=== PATIENT | female | born 1960 | race Caucasian/White ===

== ENCOUNTER 2020-06-09 09:59 | Outpatient (REF) | payer OTHER, SELFPAY ==
--- NOTE | ~2020-06-09 | MM_ITS ---
EXAMINATION: MM SCREENING DIGITAL BREAST TOMOSYNTHESIS, BILATERAL CLINICAL INFORMATION: Screening. Asymptomatic. Family history breast cancer, sister, age 60. The lifetime risk of breast cancer based on the Tyrer-Cuzick Model is 16%. COMPARISON: Mammography: 10/31/2018, 08/29/2017, 07/11/2016 TECHNIQUE: Digital breast tomosynthesis is performed in both the craniocaudal and mediolateral oblique views along with computer-aided detection (CAD). Synthesized 2D images are generated from the tomosynthesis. FINDINGS: The breasts are almost entirely fatty (ACR BI-RADS breast composition Category a). There are no significant masses, abnormal calcifications, or other abnormalities. MM/MM tomosynthesis screening BI IMPRESSION: No mammographic evidence of malignancy. ASSESSMENT: BI-RADS 1: Negative RECOMMENDATION: Routine annual mammography screening. This patient's information was entered into a reminder system with a target due date for their next mammogram.
== END 2020-06-09 10:00 | disposition home or self-care (01) ==
LOC: HO.MAMMO 09:59
PROVIDERS: Visit Provider Internal Medicine
DX: Z12.31 Encounter for screening mammogram for malignant neoplasm of breast (principal)
CPT/HCPCS: 77063; 77067

== ENCOUNTER → 2021-08-25 10:57 | Outpatient (BNVA) | payer OTHER, SELFPAY | PROVIDERS: PCP Internal Medicine; Referring Provider Internal Medicine; Visit Provider Physician Assistant | DX: Z13.89 Encounter for screening for other disorder (principal) ==

== ENCOUNTER → 2025-03-21 13:00 | Outpatient (BNV) | payer OTHER, SELFPAY | PROVIDERS: PCP Internal Medicine; Visit Provider Internal Medicine | DX: Z12.31 Encounter for screening mammogram for malignant neoplasm of breast (principal) | CPT/HCPCS: 77063; 77067 ==

== ENCOUNTER 2025-03-21 14:16 | Outpatient (REF) | payer OTHER, SELFPAY ==
--- OUTSIDE RECORDS SUMMARY | 2025-03-19 11:30 | XMS_ITS | Encounter Summary ---
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 Name Role Phone Cruz Phillip MD Primary Care Provider [phone] Reason for Referral * Consultation (Urgent) - Pending Review Specialty Diagnoses / Procedures Referred By Prasad lynn Referred To Contact Otolaryngology Diagnoses Dysphagia, unspecified type Hoarseness of voice Nuvia Barros MD [address] [place] [address] Rd [address] [place] [address] Phone: tel: fax: Referral ID Status Reason Start Date Expiration Date Visits Requested Visits Authorized [id number] Pending Review Specialty Services Required 5 03/19/2026 1 1 * Imaging (Routine) - Pending Review Specialty Diagnoses / Procedures Referred By Prasad lynn Referred To Contact Radiology Diagnoses Lower abdominal pain Procedures CT Abdomen Pelvis w Contrast Nuvia Barros MD [address] [place] [address] Phone: tel: fax: [address] Phone: tel: Referral ID Status Reason Start Date Expiration Date V isits Requested Visits Authorized [id number] Pending Review 03/19/2025 03/19/2026 1 1 Reason for Visit * Reason Comments Post-op Encounter Details Date Type Department Care Team (Latest Contact Info) Description 03/19/2025 11:30 AM EST Office Visit Urogynecology - [facility] [address] [place], [place] [phone] Nuvia Barros MD [address] [facility] [address] [place] [address] Postoperative state (Primary Dx); Lower abdominal pain; Dysphagia, unspecified type; Hoarseness of voice Social History Tobacco Use Types Packs/Day Years Used Date Smoking Tobacco: Never Smokeless Tobacco: Never Alcohol Use Standard Drinks/Week Comments No 0 (1 standard drink = 0.6 oz pur e alcohol) Interpersonal Safety Answer Date Record ed Physical Abuse Unrecognized value 01/13/2025 Verbal Abuse Unrecognized value 01/13/2025 Comments No Sex and Gender Information Value Date Recorded Sex Assigned at Not on file Legal Sex Female 8:26 AM EST Gender Identity Not on file Sexual Orientation Not on file documented as of this encounter Last Filed Vital Signs Vital Sign Reading Time Taken Comments Blood Pressure 130/86 03/19/2025 11:35 AM EST Pulse 74 03/19/2025 11:35 AM EST Temperature - - Respiratory Rate - - Oxygen Saturation - - Inhaled Oxygen Concentration - - Weight - - Height - - Body Mass Index - - documented in this encounter Progress Notes * Nuvia Barros MD - 03/19/2025 11:30 AM EST UROGYNECOLOGY POSTOPERATIVE EVALUATION VISIT LOCATION: [facility] DATE: 03/19/2025 Marva Buchanan is a 64 y.o. who presents for a postoperative visit. Surgeon: Dr. Barros Surgery Date: 01/13/25 Procedures: Robotic-assisted laparoscopic supracervical hysterectomy with bilateral salpingectomy with extensive adhesiolysis (CPT 62172). Robotic-assisted laparoscopic mesh sacrocolpoopexy (CPT 70860). Placement of retropubic mesh mid-urethral sling and cystourethroscopy (CPT 02789). Posterior colporrhaphy with perineorrhaphy (CPT 91057). She was discharged on POD#1 without a catheter. She presented with delayed postoperative urinary retention. On 01/31/25, she underwent: Release and partial removal of mesh mid-urethral sling and cystourethroscopy (CPT 42826, modifier 78). Anterior colporrhaphy (CPT 05252, modifier 78). Repair of urethral injury. She was discharged home with an indwelling Hooker catheter for 12 days. She then passed an active voiding trial. She reports mild cramping in her pelvis today. It occurs below her belly button, when she has a bowel movement or when she is coughing. She also notes persistent hoarseness of her throat, as well as some difficulty with swallowing, since her surgery. She believes it started after her second procedure in January. 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 General - Awake, alert, no acute distress Head - Normocephalic, Atraumatic. Pulmonary - Normal respiratory effort, Speaking in full sentences comfortably. Abdominal - Soft, Nondistended, Nontender. No rebound or guarding. and Surgical scar(s) noted (5 laparoscopic port sites are well approximated and c/d/I. No evidence of hernia) No tenderness when palpating over the incision. Pelvic (a speculum was used for portions of the below exam): External Genitalia: Normal external genitalia, No erythema, No discharge. Suprapubic incisions are well approximated and fully healed. There are no ecchymoses. Urethral Meatus: Normal urethral meatus Urethra: Normal in appearance. Vagina: Atrophic epithelium Vaginal incisions well approximated and fully healed. No vaginal mesh or suture exposure. Cervix: Present and No abnormalities visualized A/P: Marva Buchanan is a 64 y.o. s/p surgery on 01/13/25 complicated by postoperative urinary retention Procedures: 1. Robotic-assisted laparoscopic supracervical hysterectomy with bilateral salpingectomy with extensive adhesiolysis (CPT 74249). 2. Robotic-assisted laparoscopic mesh sacrocolpoopexy (CPT 66271). 3. Placement of retropubic mesh mid-urethral sling and cystourethroscopy (CPT 57867). 4. Posterior colporrhaphy with perineorrhaphy (CPT 04841). Procedures 01/31/2025: 1. Release and partial removal of mesh mid-urethral sling and cystourethroscopy (CPT 81802, modifier 78). 2. Anterior colporrhaphy (CPT 66272, modifier 78). 3. Repair of urethral injury. She presents today 6 weeks following her sling revision procedure. She has an appropriate postoperative exam. Infraumbilical pain - no identifiable ventral hernia on exam, but Valsalva appears to worsen the pain. Will obtain CT abd/pelvis to rule out hernia. Referral to ENT for hoarseness and dysphagia. She had a ETT for her first surgery but LMA for her second, so unclear as to the cause of persistent hoarseness. Treatment plan: Return to the office as needed Will follow up CT abd/pelvis results by phone My final recommendations will be communicated back to the requesting physician by way of shared Medical record or letter via US mail. Nuvia Barros MD Division of Urogynecology 03/19/2025 documented in this encounter Plan of Treatment Upcoming Encounters Date Type Department Care Team (Late st Contact Info) Description 05/07/2025 11:30 AM EST Office Visit Orthopedics - [facility] [address] [place] [phone] Jayson Sharpe PA [address] [place] [phone] 05/20/2025 11:00 AM EST Office Visit Gastroenterology - [address] [phone] Dottie Weaver NP [address] [address] 08/06/2025 11:00 AM EDT Office Visit Bariatric Surgery - [address] [place] [address] Roberta Brown PA [address] [place] [phone] Scheduled Orders Name Type Priority Associated Diagnoses Orde r Schedule CT Abdomen Pelvis w Contrast Imaging Routine Lower abdominal pain Expected: 03/26/2025, Expires: 03/19/2026 Scheduled Referrals Name Type Priority Associated Diagnoses Order Schedule Ambulatory referral to ENT Outpatient Referral Routine Dysphagia, unspecified type Hoarseness of voice 1 Occurrences starting 03/19/2025 until 03/19/2026 documented as of this encounter Visit Diagnoses Diagnosis Postoperative state- Primary Other postprocedural status Lower abdominal pain Abdominal pain, other specified site Dysphagia, unspecified type Hoarseness of voice Dysphonia documented in this encounter Care Teams Asphalt Plant Operator Relationship Specialty Start Date End Date Cruz Phillip MD [address] [place] [phone] PCP - General Internal Medicine 09/24/20 documented as of this encounter
--- NOTE | ~2025-03-21 | MM_ITS ---
EXAMINATION: MM SCREENING DIGITAL BREAST TOMOSYNTHESIS, BILATERAL CLINICAL INFORMATION: Screening. Asymptomatic. COMPARISON: Mammography: Comparison is made with available priors TECHNIQUE: Digital breast mammography with tomosynthesis is performed in both the craniocaudal and mediolateral oblique views along with computer-aided detection (CAD). FINDINGS: The breasts are almost entirely fatty. There are no significant masses, abnormal calcifications, or other abnormalities. MM/MM tomosynthesis screening BI IMPRESSION: No mammographic evidence of malignancy. ASSESSMENT: BI-RADS Category 1: Negative RECOMMENDATION: Routine annual mammography screening. 1 year F/U This examination should not preclude the clinical evaluation of a suspicious palpable abnormality. This patient's information was entered into a reminder system with a target due date for their next mammogram. Electronically signed by: Aysha Chavez DO 03/24/2025 04:06 PM LUCY RDZ
--- OUTSIDE RECORDS SUMMARY | 2025-03-21 14:36 | XMS_ITS | Clinical Summary ---
Author Organization [facility] [address] [facility] Address [address] [place] [address] Phone Care Team Providers Care Apparel Merchandiser Name Role Phone Cruz Phillip MD Primary Care Provider Allergies Active Allergy Reactions Criticality Noted Date Comments Tree And Shrub Pollen Low 01/31/2025 Medications clonazePAM (KlonoPIN) 1 mg tablet Take 1 tablet (1 mg total) by mouth 2 (two) times a day if needed. Active EPINEPHrine (EpiPen 2-Da) 0.3 mg/0.3 mL injection Inject 0.3 mL (0.3 mg total) as directed. 1 Active escitalopram (LEXAPRO) 20 mg tablet Take 1 tablet (20 mg total) by mouth 1 (one) time each day in the morning. 4 Active minoxidiL 5 % solution Apply topically. Active olopatadine (PATANASE) 0.6 % spray,non-aeroso l nasal spray Administer 2 sprays into affected nostril(s). 1 Active pimecrolimus (ELIDEL) 1 % cream Apply small amount to affected areas BID for 2-3 weeks during flares 1 Active topiramate (TOPAMAX) 50 mg tablet Take 1 tablet (50 mg total) by mouth. 5 Active Multivitamin Women 50 Plus 8 mg iron-400 mcg-50 mcg tablet Take 1 tablet by mouth 1 (one) time each day. 4 Active albuterol HFA (PROAIR HFA ; PROVENTIL HFA ; VENTOLIN HFA) 90 mcg/actuation inhaler Inhale 2 puffs by mouth every 4 (four) hours if needed for wheezing. 6.7 g 5 Active cetirizine (ZyrTEC) 10 mg tablet Take 1 tablet (10 mg total) by mouth 1 (one) time each day. 90 tablet 5 Active minoxidiL (LONITEN) 2.5 mg tablet TAKE 1/2 TABLET BY MOUTH DAILY FOR HAIR LOSS 5 Active fluticasone furoate-vilanter oL (BREO ELLIPTA) 200-25 mcg/dose inhaler INHALE 1 PUFF BY MOUTH 1 TIME EACH DAY 60 each 5 Active SUMAtriptan (IMITREX) 100 mg tablet May repeat dose once in 2 hours if no relief. Do not exceed 2 doses in 24 hours.Take at onset of headache, may repeat dose once after 2 hours, if needed. 9 tablet 1 5 Active wheat dextrin 3 gram/3.5 gram powder in packet Take 1 packet by mouth 1 (one) time each day. 30 packet 5 Active fluticasone propionate (FLONASE) 50 mcg/actuation nasal spray SHAKE LIQUID AND USE 1 SPRAY IN EACH NOSTRIL DAILY NEEDED FOR RHINITIS OR ALLERGIES 16 g 5 5 Active omeprazole (PriLOSEC) [address] capsule Take 1 capsule (40 mg total) by mouth 1 (one) time each day. 5 Active hydrOXYzine pamoate (VistariL) 25 mg capsuleIndicatio ns:Insomnia, unspecified type Take 1 capsule (25 mg total) by mouth at bedtime as needed (insomnia) for up to 10 days. 10 each 5 Active lactulose (Enulose) solution Take 30 mL (20 g total) by mouth 1 (one) time each day. 2700 mL 5 05/12/19 26 Active polyethylene glycol (PEG) 17 gram/dose oral powder Take 17 g by mouth 1 (one) time each day. 510 g 5 Active sucralfate (Carafate) 1 gram tabletIndication s:gastroesophage al reflux disease Take 1 tablet (1 g total) by mouth every 6 (six) hours for 14 days. 56 each 5 02/27/20 25 sulfamethoxazole -trimethoprim (BACTRIM DS,SEPTRA DS) 800-160 mg per tablet Take 1 tablet by mouth 2 (two) times a day for 7 days. 14 each 5 02/20/20 25 Active Problems Problem Noted Date Diagnosed Date Prolapse of female pelvic organs 01/13/2025 Vasomotor symptoms due to menopause 11/20/2020 Overview (02/21/2024): Last Assessment & Plan: Continue Lexapro 30 mg daily as it is helping. Midline cystocele 11/20/2020 Overview (02/21/2024): Last Assessment & Plan: Reviewed options for pelvic organ prolapse including observation, as long as not having difficulty emptying or significant discomfort, pessary fitting, vs surgical intervention. Given she is now bothered by it, she will return for pessary fitting. Red eye 06/01/2020 Overweight (BMI 25.0-29.9) 08/13/2018 Obstructive sleep apnea 07/04/2018 [place] (02/21/2024[place] [facility] [place]: [place]/2018; Wt 191# SE 80%; SM 90%; REM 29%; RDI 7 (AHI 7), REM (RDI 7 - AHI 7), Central apneas 15; Obstructive apneas 0; Mixed apneas 0; hypopneas 29; RERAs 0; average oxygen saturation 95% (lowest 88% - without saturations <88% for 5% or more of study); PLMs 0. [facility] [place] study. Date 08/27/2018. Wt 191#; BMI 29; SE 85 % SM 85 %; spent 14 % of the study in REM. On CPAP @ 12; RDI 0 (AHI 0), Central apneas 0; Obstructive apneas 0; Mixed apneas 0; hypopneas 0; RERAs 0; and, average oxygen saturation was 97%. For the entire study, PLMs ~7. - Obstructive Sleep Apnea - mild; mostly hypopneas with central apneas; without sleep related hypoventilation by 2018 polysomnogram. - CPAP @ 12 corrective/recommended. - 07/02/2018 Pre-study ESS 4. 2/4 RLS symptoms. - 08/27/2018 Pre-study ESS 0. 0/4 RLS symptoms. Atopic dermatitis 06/08/2018 Perennial allergic rhinitis 05/14/2018 Allergic conjunctivitis of both eyes 05/14/2018 GERD (gastroesophageal reflux disease) 7 Insomnia 03/23/2016 Migraines 12/25/2015 Depression 12/25/2015 Overview (02/21/2024): Follows with Psych at [address] [place] [address] St Anxiety 12/25/2015 Asthma 12/25/2015 Overview (02/21/2024): Patient has not returned multiple phone calls for lab results. She is a candidate for Nucala. Encounters Date Type Department Care Team Description 03/19/2025 11:30 AM EST Office Visit Urogynecology [address] [phone] Nuvia Barros MD Postoperative state (Primary Dx); Lower abdominal pain; Dysphagia, unspecified type; Hoarseness of voice 03/04/2025 2:00 PM EST Office Visit Bariatric Surgery [address] [place] [address] Roberta Brown PA Overweight (BMI 25.0-29.9) (Primary Dx) 02/12/2025 1:45 PM EDT Office Visit Urogynecology [address] [phone] Nuvia Barros MD Postoperative state (Primary Dx) 02/12/2025 Telephone Adult Medicine [address] [phone] Cruz Phillip MD 02/11/2025 Telephone Gastroenterology - [place] [address] [place] [address] Dottie Weaver NP 02/03/2025 Telephone Urogynecology - [address] [place] [phone] Jeanna Fox RN 01/31/2025 3:00 PM EDT - 01/31/2025 4:30 PM EDT Surgery [facility] OR [address] [place] [address], [place] [address] Nuvia Barros MD Sling release; Anterior repair [52694 (CPT )] 01/31/2025 2:49 PM EDT Anesthesia Event [facility] OR [address] [place] [address], [place] [phone] Ricardo Savage MD Alinte, Stefan, SRNA 01/31/2025 12:37 PM EDT - 01/31/2025 6:40 PM EDT Hospital Encounter [facility] OR [address] [place] [address], [place] [address] Nuvia Barros MD Discharge Disposition: Home or Self Care 01/31/2025 Results Follow-Up Urogynecology - [address] [place] [phone] Jeanna Fox RN 01/30/2025 12:00 PM EDT Office Visit Urogynecology - [address] [phone] Eugenia Trinidad NP Urinary retention (Primary Dx); Postoperative state 01/30/2025 Telephone Urogynecology - [address] [place] [phone] Nuvia Barros MD 01/29/2025 10:45 AM EDT Office Visit Orthopedics - [address] [phone] Jayson Sharpe PA Primary osteoarthritis of left knee (Primary Dx) 01/29/2025 10:30 AM EDT Procedure visit Urogynecology [address] [phone] Nuvia Barros MD Postoperative urinary retention (Primary Dx) 01/23/2025 1:00 PM EDT Office Visit Urogynecology [address] [phone] Nuvia Barros MD Postoperative urinary retention (Primary Dx); Recurrent UTI; Insomnia, unspecified type 01/23/2025 Telephone Urogynecology [address] [place] [phone] Nuvia Barros MD 01/17/2025 Telephone Urogynecology [address] [phone] Nuvia Barros MD 01/16/2025 Telephone Urogynecology [address] [place] [phone] Jeanna Fox RN 01/13/2025 1:15 PM EDT Anesthesia Event [address] [phone] Raudel Ruiz DO Gomes, Sheldon B, MD 01/13/2025 12:00 PM EDT - 01/13/2025 5:15 PM EDT Surgery [address] [phone] Nuvia Barros MD DAVINCI COLPOPEXY [12357 (CPT )] 01/13/2025 10:36 AM EDT - 01/14/2025 5:55 PM EDT Hospital Encounter [facility] [address] [place] [phone] Nuvia Barros MD Acute postoperative pain (Primary Dx); Female cystocele; Rectocele; Uterovaginal prolapse, incomplete; Stress incontinence; Post-operative nausea and vomiting Discharge Disposition: Home or Self Care 01/09/2025 8:30 AM EDT Consult Urogynecology [address] [phone] Nuvia Barros MD Uterovaginal prolapse, incomplete (Primary Dx); Female cystocele; Rectocele; Stress incontinence 12/31/2024 10:00 AM EDT Consult Adult Medicine [address] [phone] Cruz Phillip MD Preop examination (Primary Dx); Gastroesophageal reflux disease, unspecified whether esophagitis present; Anxiety; Primary insomnia from Last 3 Months Immunizations Immunization Administration Dates Next Due Influenza Quadravalent, MDCK , 0.5ml, preservative free (Flucelvax) 6mo and older 02/12/2021,01/10/2020 Influenza Quadravalent, MDCK , 0.5ml, with preservative (Flucelvax) 6mo and older 05/02/2018,03/16/2017 Influenza trivalent, 0.5mL, preservative free (Fluarix; FluLaval; Fluzone) ages 6mo and older (Afluria) 3 years and older 06/08/2016,03/30/2015 Pneumococcal conjugate 13 va lent (Prevnar 13, PCV13) 2mo and older 12/30/2015 Tdap Tetanus diptheria acell ular pertussis (Boostrix; Adacel) 7yo and older 12/30/2015 Surgical History Surgery Date Site/Laterality Comments TUBAL LIGATION PROCEDURE: HISTORICAL TUBAL LIGATION COLONOSCOPY 02/12/2016 PROCEDURE: HISTORICAL COLONOSCOPY BLADDER SUSPENSION COLPORRHAPHY CYSTOSCOPY Medical History Medical History Date Comments Anxiety 12/25/2015 DX:Anxiety Asthma 12/25/2015 DX:Asthma Migraines 12/25/2015 DX:Migraines Depression 12/25/2015 DX:Depression Allergic rhinitis 03/23/2016 DX:Allergic rh initis Insomnia 03/23/2016 DX:Insomnia GERD (gastroesophageal reflux disease) 06/08/2016 DX:GERD (gastroesophageal reflux disease) Sleep apnea Family History Medical History Relation Name Comments Asthma Father from asthm a attack at age 42 Asthma Mother from asthm a attack at age 62 Breast cancer Sister Colon cancer Neg Hx Ovarian cancer Neg Hx Pancreatic cancer Neg Hx Prostate cancer Neg Hx Uterine cancer Neg Hx Relation Name Status Comments Brother Alive Father Mother Sister Alive Social History Tobacco Use Types Packs/Day Years Used Date Smoking Tobacco: Never Smokeless Tobacco: Never Tobacco Cessation:Counseling Given: Not Answered Alcohol Use Standard Drinks/Week Comments No 0 (1 standard drink = 0.6 oz pur e alcohol) Interpersonal Safety Answer Date Record ed Physical Abuse Unrecognized value 01/13/2025 Verbal Abuse Unrecognized value 01/13/2025 Comments No Sex and Gender Information Value Date Recorded Sex Assigned at Not on file Legal Sex Female 8:26 AM EST Gender Identity Not on file Sexual Orientation Not on file Obstetrics History Last Filed Vital Signs Vital Sign Reading Time Taken Comments Blood Pressure 130/86 03/19/2025 11:35 AM EST Pulse 74 03/19/2025 11:35 AM EST Temperature 36.5 C (97.7 F) 01/31/2025 4:20 PM EDT Respiratory Rate 13 01/31/2025 4:45 PM EDT Oxygen Saturation 98% 01/31/2025 6:00 PM EDT Inhaled Oxygen Concentration - - Weight 77.7 kg (171 lb 6.4 oz) 03/04/2025 2:06 P M EST Height 167.6 cm (5' 6 ) 03/04/2025 2:06 PM EST Body Mass Index 27.66 03/04/2025 2:06 PM EST Plan of Treatment Upcoming Encounters Date Type Department Care Team (Late st Contact Info) Description 05/07/2025 11:30 AM EST Office Visit Orthopedics - [place] [address] [place] [phone] Jayson Sharpe PA [address] [place] [phone] 05/20/2025 11:00 AM EST Office Visit Gastroenterology - [address] [phone] Dottie Weaver NP [address] [phone] 08/06/2025 11:00 AM EDT Office Visit Bariatric Surgery - [address] [place] [address] Roberta Brown PA [facility] [place] [address] Health Maintenance Due Date Last Done Comments Zoster Vaccines (1 of 2) 1979 RSV Immunization Adult Patients (1 - Risk 50-74 years 1-dose series) 2010 Pneumococcal Vaccine: 50+ Years (2 of 2 - PPSV23, PCV20, or PCV21) 02/24/2016 12/30/2015 COVID-19 Vaccine (3 - Moderna risk series) 10/17/2020 09/19/2020, 08/22/2020 Cholesterol Screening (Lipid Panel) 04/09/2022 HIV Screening 04/09/2022 Hepatitis C Screening 04/09/2022 Medicare Annual Wellness Visit 04/09/2022 Social Influencers of Health Screening 04/09/2022 Breast Cancer Screening 06/09/2022 06/09/2020 Cervical Cancer Screening: Pap Smear 11/21/2023 11/20/2020 Depression Screening 05/01/2024 Influenza Vaccine (#1) 2024 , 01/10/2020, 05/02/2018, Additional history exists DTaP,Tdap,and Td Vaccines (2 - Td or Tdap) 12/29/2025 12/30/2015 Colorectal Cancer Screening: Colonoscopy 02/11/2026 02/12/2016 HIB Vaccines Aged Out No longer eligi ble based on patient's age to complete this topic HPV Vaccines Aged Out No longer eligi ble based on patient's age to complete this topic Hepatitis A Vaccines Aged Out No long er eligible based on patient's age to complete this topic Hepatitis B Vaccines Aged Out No long er eligible based on patient's age to complete this topic IPV Vaccines Aged Out No longer eligi ble based on patient's age to complete this topic MMR Vaccines Aged Out No longer eligi ble based on patient's age to complete this topic Meningococcal ACWY Vaccine Aged Out N o longer eligible based on patient's age to complete this topic Meningococcal B Vaccine Aged Out No l onger eligible based on patient's age to complete this topic RSV Immunization Patients Under 20 months Aged Out No longer eligible based on patient's age to complete this topic Varicella Vaccines Aged Out No longer eligible based on patient's age to complete this topic Medical Devices Implanted Type Area Refrigerator Tester Device Identifier Shelf Expiration Date Model / Serial / Lot Mesh Y Upsylon - Sn/A - [id number] Implanted:Qty: 1 on 01/13/2025 by Nuvia Barros MD at [facility] Surgical Mesh Sling Implants N/A: Pelvis [employer] 06/20/2027 [id number] 200 / N/A / [id number] Sling Transvaginal Advantage Fit Blue - Sn/A - [id number] Implanted:Qty: 1 on 01/13/2025 by Nuvia Barros MD at [facility] Surgical Mesh Sling Implants N/A: Pelvis [employer]GY[employer] LGY [id number] 09/25/2027 [id number] 120 / N/A / [id number] Procedures Procedure Name Priority Date/Time Associated Diagnosis Comments OXYGEN THERAPY, ADULT Routine 01/31/2025 4:07 PM EDT OXYGEN THERAPY, ADULT Routine 01/31/2025 4:07 PM EDT TH AN LMA(NO CHARGE) Routine 01/31/2025 3:13 PM EDT CYSTOSCOPY 01/31/2025 2:36 PM EDT Retention of urine, unspecified Stress incontinence Case Notes May have to cancel...2nd case45 mins ND REMOVAL/REVISION SLING FOR STRESS INCONTINENCE 01/31/2025 2:36 PM EDT Retention of urine, unspecified Stress incontinence Case Notes May have to cancel...2nd case45 mins CULTURE URINE Routine 01/30/2025 3:28 PM EDT Urinary retention CULTURE URINE Routine 01/29/2025 11:02 AM EDT Postoperative urinary retention ND ARTHROCENTESIS/ASPIRAT ION/INJECTION MAJOR JOINT/BURSA W/O U/S GUIDANCE Routine 01/29/2025 10:45 AM EDT Primary osteoarthritis of left knee HEMOGLOBIN AND HEMATOCRIT STAT 01/14/2025 12:14 PM EDT TISSUE EXAM Routine 01/13/2025 3:50 PM EDT Female cystocele Rectocele Uterovaginal prolapse, incomplete Stress incontinence TH AN ENDOTRACHEAL(NO CHARGE) Routine 01/13/2025 1:58 PM EDT ND LAP SURG W TOTAL HYSTERECTOMY FOR UTERUS 250G OR LESS W REM TUBE & OVARY 01/13/2025 1:18 PM EDT Female cystocele Rectocele Uterovaginal prolapse, incomplete Stress incontinence Case Notes uterine manipulator, EEA sizers, Breisky-Navratril retractor, Upsylon Y mesh Special Needs ADDED CODE 80289 ROBOTIC HYSTERECTOMY PER AMANDA VIA PHONE; ADDED ADD'L 10 MINS AC 9/11 ND POSTERIOR COLPORRHAPHY REPAIR RECTOCELE W/WO PERINEORRHAPHY 01/13/2025 1:18 PM EDT Female cystocele Rectocele Uterovaginal prolapse, incomplete Stress incontinence Case Notes uterine manipulator, EEA sizers, Breisky-Navratril retractor, Upsylon Y mesh Special Needs ADDED CODE 48668 ROBOTIC HYSTERECTOMY PER AMANDA VIA PHONE; ADDED ADD'L 10 MINS AC 9/11 ND CYSTOURETHROSCOPY 01/13/2025 1:18 PM EDT Female cystocele Rectocele Uterovaginal prolapse, incomplete Stress incontinence Case Notes uterine manipulator, EEA sizers, Breisky-Navratril retractor, Upsylon Y mesh Special Needs ADDED CODE 92183 ROBOTIC HYSTERECTOMY PER AMANDA VIA PHONE; ADDED ADD'L 10 MINS AC 9/11 ND SLING OPERATION FOR STRESS INCONTINENCE 01/13/2025 1:18 PM EDT Female cystocele Rectocele Uterovaginal prolapse, incomplete Stress incontinence Case Notes uterine manipulator, EEA sizers, Breisky-Navratril retractor, Upsylon Y mesh Special Needs ADDED CODE 89806 ROBOTIC HYSTERECTOMY PER AMANDA VIA PHONE; ADDED ADD'L 10 MINS AC 9/11 ND LAPAROSCOPY SURGICAL COLPOPEXY 01/13/2025 1:18 PM EDT Female cystocele Rectocele Uterovaginal prolapse, incomplete Stress incontinence Case Notes uterine manipulator, EEA sizers, Breisky-Navratril retractor, Upsylon Y mesh Special Needs ADDED CODE 07932 ROBOTIC HYSTERECTOMY PER AMANDA VIA PHONE; ADDED ADD'L 10 MINS AC 01/09 TYPE AND SCREEN STAT 01/13/2025 10:48 AM EDT CBC WITH AUTO DIFFERENTIAL Routine 12/31/2024 11:03 AM EDT Preop examination CBC AND DIFFERENTIAL Routine 12/31/2024 11:03 AM EDT Preop examination BASIC METABOLIC PANEL Routine 12/31/2024 11:03 AM EDT Preop examination PAP SMEAR Routine 11/20/2020 from Last 3 Months or Most Recently Relevant to Health Maintenance Results * TH AN LMA(NO CHARGE) (01/31/2025 3:13 PM EDT) Kingsley Joyner SRNA - 01/31/2025 3:13 PM EDT LUIS Castro 01/31/2025 3:15 PM General Information and Staff Patient location during procedure: OR Anesthesiologist: Ricardo Savage MD Other anesthesia staff: LUIS Castro Performed: anesthesiologist and other anesthesia staff Performed by: LUIS Castro Authorized by: Ricardo Savage MD Intubation Airway not difficult Reason: elective Final Airway Details Ventilation between attempts: none LMA Size: 4 LMA Type: Classic LMA Seal Pressure: Final airway type: LMA Indications and Patient Condition Indications for airway management: anesthesia Sedation level: Yes Preoxygenated: yesSoft Tissue Damage: No Dentition Unchanged: Yes Patient position: sniffing MILS maintained throughout Mask difficulty assessment: 1 - vent by mask Start Time: 01/31/2025 2:59 PMStop Time: 01/31/2025 3:01 PM us Ricardo Savage MD ANESTHESIA ORDERABLES Final Resu lt * Culture urine (01/30/2025 3:28 PM EDT) Only the most recent of2 resultswithin the time period is included. Culture, Urine No growth 02/01/2025 11:53 AM EDT [facility] Urine Urinary bladder structure / Unknown Non-blood Collection / Unknown 01/30/2025 3:28 PM EDT 01/30/2025 3:28 PM EDT Eugenia Trinidad NP LAB MICROBIOLOGY - GENERAL ORDERABLES Final Result [facility] [address] [place] [address], * ND ARTHROCENTESIS/ASPIRATION/INJECTION MAJOR JOINT/BURSA W/O U/S GUIDANCE (01/29/2025 10:45 AM EDT) Jayson Davis PA - 01/29/2025 10:45 AM EDT JUDSON Baker 01/29/2025 11:32 AM L Inj/Asp: L knee Indications: pain Details: 22 G needle, anterolateral approach Medications: 4 mL lidocaine 1 %; 80 mg methylPREDNISolone acetate 80 mg/mL Informed Consent: Site: Knee Laterality: Left Relevant images/test results available and reviewed: yes Health status cleared: Yes Procedure/treatment, purpose, treatment alternatives, risks/potential complications and benefits explained: yes Risk/complications/benefits details: Risks include but are not limited to: The treatment may not accomplish the desired results. Additionally bleeding, infection, damage to tendon, nerve, cartilage, muscle; thinning or lightening of the skin in the area of injection; flushing or redness of the face, elevated blood pressure or blood sugar, allergic reaction, rash, increased pain Benefits include relief of inflammation and pain Patient questions answered: yes Patient agrees, verbalizes understanding, and wants to proceed: yes Consent given by: Patient Informed consent discussion completed by Physician/ARIANNA with patient: Verbal Pre-procedure timeout performed: yes Jayson ROPER IN CLINIC/BEDSIDE ORDERABLES Fin al Result * (ABNORMAL) Hemoglobin and hematocrit (01/14/2025 12:14 PM EDT) Hemoglobin 10.9(L) 11.5 - 16.0 g/dL LAB HEMETOLOGY METHOD 01/14/2025 12:32 PM EDT [facility] Hematocrit 32.6(L) 35.0 - 47.0 % LAB HEMETOLOGY METHOD 01/14/2025 12:32 PM EDT [facility] Blood Venous blood specimen / Unknown Venipuncture / Unknown 01/14/2025 12:14 PM EDT 01/14/2025 12:20 PM EDT us Nathaly ROPER LAB BLOOD ORDERABLES Final R esult [facility] [address] [place] [address], * Tissue exam (01/13/2025 3:50 PM EDT) Final Diagnosis Uterus and bilateral fallopian tubes (35 grams), supracervical hysterectomy with bilateral salpingectomy: Endometrium: 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 Myometrium: Adenomyosis. Fallopian tubes (received detached; laterality cannot be assigned): Diminutive paramesonephric cyst; otherwise without diagnostic histopathologic change. 01/15/2025 4:14 PM EDT [facility] Comment Critical Care Nurse Specialist slide(s) from this case have been presented at Anatomic Pathology Intradepartmental Review Conference on 01/15/25. 01/15/2025 4:14 PM EDT [facility] Gross Description A. Uterus, bilateral fallopian tubes: Labeled and bilat, uterus . Received in formalin is a 35 g, 4.9 x 4.3 x 1.5 cm supracervically amputated uterus with attached bilateral fimbriated fallopian tubes. The serosa is kaur-alarcon, smooth to shaggy. The specimen is bivalved revealing a 1.6 x 0.8 cm white-pink polyp in the lower uterine segment. The endometrial cavity measures 3.8 x 2.9 cm. The endometrium is white-pink and glistening, measuring 0.3 cm in thickness. The myometrium is kaur-pink and finely trabecular, measuring 0.6 cm in thickness. The fallopian tubes are kaur-alarcon. The right fallopian tube measures 3.6 x 0.4 cm. The left fallopian tube measures 5.7 x 0.6 cm. The cut surfaces show a pinpoint lumen. Critical Care Nurse Specialist sections are submitted in seven cassettes. 1: Full-thickness anterior endomyometrium, two pieces 2 :Full-thickness posterior endomyometrium, two pieces 3-5: Full-thickness posterior lower uterine segment to include entire polyp, two pieces each 6: Bisected fimbria and cross-sections of right fallopian tube, four pieces 7: Bisected fimbria and cross-sections of left fallopian tube, four pieces KR 01/15/2025 4:14 PM EDT [facility] Disclaimer Unless otherwise specified, all tissue is 10% NB formalin fixed and paraffin embedded. 01/15/2025 4:14 PM EDT [facility] Tissue Uterine structure / Unknown 01/13/2025 3:50 PM EDT 01/14/2025 5:12 AM EDT us Nuvia Barros MD LAB PATHOLOGY ORDERABLES Final Result [facility] [address] [place] [address], * TH AN ENDOTRACHEAL(NO CHARGE) (01/13/2025 1:58 PM EDT) Narrative Perla Pierson CRNA - 01/13/2025 1:58 PM EDT Perla Pierson CRNA 01/13/2025 2:00 PM General Information and Staff Patient location during procedure: OR Performed by: Perla Pierson CRNA Authorized by: Jessy Fall MD Intubation Airway not difficult Urgency: elective Final Airway Details Successful airway: ETT Successful intubation technique: direct laryngoscopy Facilitating devices/methods: intubating stylet Endotracheal tube insertion site: oral Blade: Cristin Blade size: #3 ETT size (mm): 7.0 Cormack-Lehane Classification: grade I - full view of glottis Placement verified by: chest auscultation and capnometry Measured from: teeth ETT to teeth (cm): 19 Number of attempts at approach: 1Final airway type: endotracheal airway Indications and Patient Condition Indications for airway management: anesthesia Spontaneous Ventilation: absent Sedation level: Yes Preoxygenated: yes Soft Tissue Damage: No Dentition Unchanged: Yes Patient position: sniffing MILS maintained throughout Mask difficulty assessment: 1 - vent by mask us Jessy Fall MD ANESTHESIA ORDERABLES Fin al Result * Type and screen (01/13/2025 10:48 AM EDT) [facility] ABO Group A 01/13/2025 12:08 PM EDT [facility] Rh Type Positive 01/13/2025 12:08 PM EDT [facility] Antibody Screen Negative 01/13/2025 12:08 PM EDT [facility] Blood Venous blood specimen / Unknown 01/13/2025 10:48 AM EDT 01/13/2025 11:05 AM EDT us Nuvia Barros MD LAB BLOOD BANK TEST ORDERABLES Final Result [facility] [address] [place] [address], * CBC auto differential (12/31/2024 11:03 AM EDT) [facility] WBC 7.3 4.8 - 10.8 K/mcL LAB HEMETOLOGY METHOD 12/31/2024 2:51 PM EDT [facility] RBC 4.00 3.80 - 4.80 M/mcL LAB HEMETOLOGY METHOD 12/31/2024 2:51 PM EDT [facility] Hemoglobin 12.0 11.5 - 16.0 g/dL LAB HEMETOLOGY METHOD 12/31/2024 2:51 PM EDT [facility] Hematocrit 37.0 35.0 - 47.0 % LAB HEMETOLOGY METHOD 12/31/2024 2:51 PM EDT [facility] MCV 91.6 79.0 - 98.0 FL LAB HEMETOLOGY METHOD 12/31/2024 2:51 PM EDT [facility] MCH 29.7 27.0 - 32.0 pcg LAB HEMETOLOGY METHOD 12/31/2024 2:51 PM EDT [facility] MCHC 32.4 32.0 - 37.0 g/dL LAB HEMETOLOGY METHOD [facility] RDW 13.2 11.0 - 15.0 % LAB HEMETOLOGY METHOD 12/31[facility]2024 [facility] Platelets 307 130 - 400 K/mcL LAB HEMETOLOGY METHOD 12/31/2024 2[facility] MPV 9.7 7.0 - 11.0 FL LAB HEMETOLOGY METHOD 12/31/2024 2[facility] NRBC 0.0 <1.0 % LAB HEMETOLOGY METHOD 12/31/2024 2:51 PM [facility] NRBC Absolute 0.00 <0.10 K/mcL LAB HEMETOLOGY METHOD 12/31/2024 2:51 PM EDT [facility] Neutrophils Relative 52.7 % LAB HEMETOLOGY METHOD 12/31/2024 2:51 PM EDT [facility] Lymphocytes Relative 34.7 % LAB HEMETOLOGY METHOD 12/31[facility]2024 [facility] Monocytes Relative 9.5 % LAB HEMETOLOGY METHOD 12/31/2024 2[facility] Eosinophils Relative 1.8 % LAB HEMETOLOGY METHOD 12/31/2024 2[facility] Basophils Relative 1.0 % LAB HEMETOLOGY METHOD 12/31/2024 2:51 PM EDT [facility] Immature Granulocytes Relative 0.3 % LAB HEMETOLOGY METHOD 12/31/2024 2:51 PM EDT [facility] Neutrophils Absolute 3.87 1.50 - 7.00 K/mcL LAB HEMETOLOGY METHOD 12/31/2024 2:51 PM EDT [facility] Lymphocytes Absolute 2.54 1.00 - 5.00 K/mcL LAB HEMETOLOGY METHOD 12/31/2024 2:51 PM EDT [facility] Monocytes Absolute 0.70 0.20 - 1.00 K/mcL LAB HEMETOLOGY METHOD 12/31/2024 2:51 PM EDT [facility] Eosinophils Absolute 0.13 0.00 - 0.50 K/mcL LAB HEMETOLOGY METHOD 12/31/2024 2:51 PM EDT [facility] Basophils Absolute 0.07 0.00 - 0.20 K/mcL LAB HEMETOLOGY METHOD 12/31/2024 2:51 PM EDT [facility] Immature Granulocytes Absolute 0.02 0.00 - 0.03 K/mcL LAB HEMETOLOGY METHOD 12/31/2024 2:51 PM EDT [facility] Blood Venous blood specimen / Unknown Venipuncture / Unknown 12/31/2024 11:03 AM EDT 12/31/2024 11:03 AM EDT us Cruz Phillip MD LAB BLOOD ORDERABLES Final Resu lt [facility] [address] [place] [address], * Basic metabolic panel (12/31/2024 11:03 AM EDT) Pathologist [facility] Sodium 138 133 - 145 mmol/L LAB CHEMISTRY METHOD 12/31/2024 7:54 PM [facility] Potassium 3.9 3.5 - 5.5 mmol/L LAB CHEMISTRY METHOD 12/31/2024 7:54 PM [facility] Chloride 105 96 - 110 mmol/L LAB CHEMISTRY METHOD 12/31/2024 7:54 PM [facility] CO2 27 21 - 32 mmol/L LAB CHEMISTRY METHOD 12/31/2024 7:54 PM [facility] Anion Gap 6 3 - 11 LAB CHEMISTRY METHOD 12/31/2024 7:54 PM [facility] Glucose 90 70 - 100 mg/dL LAB CHEMISTRY METHOD 12/31/2024 7:54 PM [facility] BUN 10 5 - 25 mg/dL LAB CHEMISTRY METHOD 12/31/2024 7:54 PM [facility] Creatinine 0.80 0.50 - 1.10 mg/dL LAB CHEMISTRY METHOD 12/31/2024 7:54 PM [facility] eGFR 82 >=60 mL/min/1. 73m2 LAB CHEMISTRY METHOD 12/31/2024 7:54 PM [facility] Comment:Calculation based on the Chronic Kidney Disease Epidemiology Collaboration (CKD-EPI) equation refit without adjustment for race. BUN/Creatinine Ratio 12.5 LAB CHEMISTRY METHOD 12/31/2024 7:54 PM [facility] Calcium 8.8 8.5 - 10.5 mg/dL LAB CHEMISTRY METHOD 12/31/2024 7:54 PM [facility] Blood Venous blood specimen / Unknown Venipuncture / Unknown 12/31/2024 11:03 AM EDT 12/31/2024 11:03 AM EDT us Cruz Phillip MD LAB BLOOD ORDERABLES Final Resu lt [facility] [address] [place] [address], * Pap smear (11/20/2020) 11/20/2020 Narrative HISTORICAL TESTING LAB RESULTING AGENCY - 11/24/2020 3:05 PM EDT [id number] THINPREP PAP, IMAGED: NEGATIVE FOR SQUAMOUS INTRAEPITHELIAL LESION AND MALIGNANCY . JOSR VELÁZQUEZ(ASCP) (CASE ELECTRONICALLY SIGNED 11 24 2020) RESULT OF APTIMA HIGH RISK HPV ASSAY: HIGH RISK HPV: NEGATIVE (SEROTYPES 16,18,31,33,35,39,45,51,52,56,58,59,66,68) COMPLETED ON 2020-11-23 ADEQUACY: SATISFACTORY ENDOCERVICAL/TRANSFORMATION ZONE COMPONENT PRESENT. SOURCE: THINPREP PAP HPV ANY DX: REFLEX 16 AND 18, CERVICAL, IMAGED CLINICAL INFORMATION: HPV ANY DIAGNOSIS. Z12.4 Padma Brown MD LAB CYTOLOGY ORDERABLES Eligio brandon Result - Final HISTORICAL TESTING LAB RESULTING AGENCY from Last 3 Months or Most Recently Relevant to Health Maintenance Insurance [facility] [employer] MED[employer] Member Subscriber Plan / Payer (Ef fective 2019-Present) Name:MARVA BUCHANAN Relation to Subscriber:Self Name:Marva Buchanan Payer ID:[id number] Group ID:[id number] Type:Not on file Address: [address] [place] [address] Advance Directives * Full Code - Default (Latest Code Status on File) Date Activated Date Inactivated Comments 01/31/2025 12:51 PM 01/31/2025 8:40 PM This is ord er is used when code status has not been discussed with the patient, or code status is otherwise unknown/unconfirmed To update the patient's code status, place a code status order. Do not modify or discontinue any currently active code status orders. * Full Code - Default Date Activated Date Inactivated Comments 01/13/2025 10:47 AM 01/14/2025 7:55 PM This is ord er is used when code status has not been discussed with the patient, or code status is otherwise unknown/unconfirmed To update the patient's code status, place a code status order. Do not modify or discontinue any currently active code status orders. Care Teams Apparel Merchandiser Relationship Specialty Start Date End Date Cruz Phillip MD [address] [place] [phone] PCP - General Internal Medicine 09/24/20
--- OUTSIDE RECORDS SUMMARY | 2025-03-21 14:36 | XMS_ITS | Encounter Summary ---
Author Organization [employer] [place] [address] Care Team Providers Care Laborer Operator Name Role Phone Cruz Phillip MD Primary Care Provider Encounter Details Date Type Department Care Team (Late Contact Info) Description 01/31/2025 Results Follow-Up Urogynecology - [address] [place] [address] Jeanna Fox RN Social History Tobacco Use Types Packs/Day Years [...] on file documented as of this encounter Plan of Treatment Upcoming Encounters Date Type Department Care Team (Late Contact Info) Description 05/07/2025 11:30 AM EST Office Visit Orthopedics - [address] [phone] Jayson Sharpe PA [address] [place] [address] 05/20/2025 11:00 AM EST Office Visit Gastroenterology - [address] [facility] [address] [place] [address] Dottie Weaver, THANH [address] [facility] [address] [place] [address] 08/06/2025 11:00 AM EDT Office Visit Bariatric Surgery - [place] 175 [facility] [address] [place] [phone] Roberta Brown PA [address] [place] [address] documented as of this encounter Visit Diagnoses Not on filedocumented in this encounter Care Teams Laborer Operator Relationship Specialty Start Date End Date Cruz Phillip MD [address] [place] [phone] PCP - General Internal Medicine 09/24/20 documented as of this encounter
--- OUTSIDE RECORDS SUMMARY | 2025-03-21 14:36 | XMS_ITS ---
Author Name [facility] Organization Unknown History of Medication Use Medication Directions Dispensed Refills Start Date End Date [facility] acetaminophen (TYLENOL) tablet 975 mg 975 mg, oral, Once, On Mon01/31/25 at 1315, For 1 dose, Preprocedure, Give 1 hour prior to surgery 01/31/2025 02/01/20 completed phenazopyridine (PYRIDIUM) tablet 190 mg 190 mg, oral, Once, On Mon01/31/25 at 1315, For 1 dose, Preprocedure 01/31/2025 02/01/20 completed acetaminophen (TYLENOL 8 HOUR) 650 mg 8 hr tablet Take 1 tablet (650 mg total) by mouth every 6 (six) hours if needed for mild pain for up to 14 days. Do not crush, chew, or split. 01/31/2025 active albuterol 2.5 mg /3 mL (0.083 %) nebulizer solution 2.5 mg 2.5 mg, nebulization, Once as needed, wheezing, Starting on Mon01/31/25 at 1607, For 1 dose, Recovery (only) 01/31/2025 active diphenhydrAMINE (BENADRYL) injection 25 mg 25 mg, intravenous, Every 15 min PRN, itching, Starting on Mon01/31/25 at 1607, Recovery (only) 01/31/2025 active HYDROmorphone (DILAUDID) injection 0.5 mg 0.5 mg, intravenous, Every 15 min PRN, severe pain or when therapies for moderate pain were not effective, Starting on Mon01/31/25 at 1607, For 5 doses, Recovery (only) 01/31/2025 active lactated Ringer's infusion 125 mL/hr, intravenous, Continuous, Starting on Mon01/31/25 at 1315, Preprocedure 01/31/2025 active lactated Ringer's infusion 100 mL/hr, intravenous, Continuous, Starting on Mon01/31/25 at 1630, Recovery (only) 01/31/2025 active lidocaine (XYLOCAINE) 2 % gel Apply topically 2 (two) times a day for [address] around urethra to relieve discomfort from barclay catheter 01/31/2025 active meperidine (PF) (DEMEROL) 25 mg/mL injection 12.5 mg 12.5 mg, intravenous, Every 15 min PRN, rigors, shivering, Starting on Mon01/31/25 at 1607, For 4 doses, Recovery (only) 01/31/2025 active metoclopramide (REGLAN) tablet 10 mg [Order 1 Start] Name: metoclopramide (REGLAN) tablet 10 mg Signed Summary: 10 mg, oral, Every 6 hours PRN, nausea, vomiting, Starting on Mon01/31/25 at 1607, Recovery (only), 2nd Line Option: -Give IV if patient is unable to take orally. -If inadequate response within 30 minutes, proceed to next-skyler 01/31/2025 active ondansetron ODT (ZOFRAN-ODT) disintegrating tablet 4 mg [Order 1 Start] Name: ondansetron ODT (ZOFRAN-ODT) disintegrating tablet 4 mg Signed Summary: 4 mg, oral, Every 8 hours PRN, vomiting, nausea, Starting on Mon01/31/25 at 1607, Recovery (only), -Give IV if patient is unable to take orally. -If inadequate response within 30 minutes, proceed to next-li 01/31/2025 active phenazopyridine (PYRIDIUM) 200 mg tablet Take 1 tablet (200 mg total) by mouth 3 (three) times a day if needed for bladder spasms for up to 14 days. 01/31/2025 active sodium chloride 0.9 % flush 10 mL [Order 1 Start] Name: Insert peripheral IV Signed Summary: STAT, Once, On Mon01/31/25 at 1251, For 1 occurrence, Preprocedure [Order 1 End] [Order 2 Start] Name: Maintain IV access Signed Summary: Until discontinued, Starting on Mon01/31/25 at 1251, Until Specified, Preprocedure [Order 2 End] [Order 01/31/2025 active phenazopyridine (PYRIDIUM) 100 mg tablet Take 1 tablet (100 mg total) by mouth 3 (three) times a day for 10 doses. 01/30/2025 active bisacodyL (Laxative, bisacodyl,) 5 mg tablet Take 5 mg by mouth 1 (one) time each day for 7 days. 01/23/2025 02/01/20 active hydrOXYzine pamoate (VistariL) 25 mg capsule Take 1 capsule (25 mg total) by mouth at bedtime as needed (insomnia) for up to 10 days. 01/23/2025 active methenamine hippurate (HIPREX) 1 gram tablet Take 1 tablet (1 g total) by mouth 2 (two) times a day with meals. 01/23/2025 active acetaminophen (TYLENOL) 500 mg tablet Take 2 tablets (1,000 mg total) by mouth every 6 (six) hours for 10 days. 01/14/2025 active docusate sodium (COLACE) 100 mg capsule Take 1 capsule (100 mg total) by mouth 2 (two) times a day for 14 days. 01/14/2025 active ibuprofen (ADVIL,MOTRIN) 600 mg tablet Take 1 tablet (600 mg total) by mouth every 6 (six) hours for 5 days. Take 3 hours after tylenol 01/14/2025 active ondansetron ODT (ZOFRAN-ODT) 4 mg disintegrating tablet Dissolve 1 tablet (4 mg total) on top of the tongue every 8 (eight) hours if needed for vomiting or nausea for up to 7 days. 01/14/2025 active oxyCODONE (ROXICODONE) 5 mg immediate release tablet Take 1 tablet (5 mg total) by mouth every 6 (six) hours if needed for severe pain. Max Daily Amount: 20 mg 01/14/2025 active polyethylene glycol (PEG) 17 gram/dose oral powder DISSOLVE 17 GRAMS INTO LQIUID AND DRINK BY MOUTH DAILY 01/14/2025 active tirzepatide, weight loss, (Zepbound) 7.5 mg/0.5 mL injection Inject 0.5 mL (7.5 mg total) under the skin every 7 (seven) days. 01/14/2025 active omeprazole (PriLOSEC) [address] capsule Take 1 capsule (40 mg total) by mouth 1 (one) time each day. 12/26/2024 active fluticasone propionate (FLONASE) 50 mcg/actuation nasal spray SHAKE LIQUID AND USE 1 SPRAY IN EACH NOSTRIL DAILY NEEDED FOR RHINITIS OR ALLERGIES 12/04/2024 active lactulose (CHRONULAC) solution Take 30 mL (20 g total) by mouth 1 (one) time each day. 11/14/2024 active wheat dextrin 3 gram/3.5 gram powder in packet Take 1 packet by mouth 1 (one) time each day. 10/31/2024 active minoxidiL (LONITEN) 2.5 mg tablet TAKE 1/2 TABLET BY MOUTH DAILY FOR HAIR LOSS 05/13/2024 active lactulose (CHRONULAC) solution Take 30 mL (20 g total) by mouth. 08/14/2023 active escitalopram (LEXAPRO) 20 mg tablet Take 1 tablet (20 mg total) by mouth 1 (one) time each day in the morning. 07/19/2023 active triamcinolone acetonide (KENALOG-40) 40 mg/mL injection Inject 1 mL (40 mg total) into the joint. 07/04/2023 active famotidine (PEPCID) 20 mg tablet Take 2 tablets (40 mg total) by mouth. 06/14/2023 07/10/19 25 active diclofenac (VOLTAREN) 1 % topical gel Apply 4 g topically. 05/23/2023 active fluticasone propionate (FLONASE) 50 mcg/actuation nasal spray Administer 1 spray into affected nostril(s). 05/23/2023 active Multivitamin Women 50 Plus 8 mg iron-400 mcg-50 mcg tablet Take 1 tablet by mouth 1 (one) time each day. 05/23/2023 active pantoprazole (PROTONIX) 40 mg EC tablet Take 1 tablet (40 mg total) by mouth 2 (two) times a day. 03/01/2023 active albuterol HFA (PROAIR HFA ; PROVENTIL HFA ; VENTOLIN HFA) 90 mcg/actuation inhaler Inhale 2 puffs by mouth. 11/18/2022 active SUMAtriptan (IMITREX) 100 mg tablet May repeat dose once in 2 hours if no relief. Do not exceed 2 doses in 24 hours.Take at onset of headache, may repeat dose once after 2 hours, if needed. 11/18/2022 active cetirizine (ZyrTEC) 10 mg tablet Take 1 tablet (10 mg total) by mouth. 06/18/2021 active EPINEPHrine (EpiPen 2-Ad) 0.3 mg/0.3 mL injection Inject 0.3 mL (0.3 mg total) as directed. 07/24/2020 active fluticasone furoate-vilanteroL (BREO ELLIPTA) 200-25 mcg/dose inhaler INHALE 1 PUFF BY MOUTH 1 TIME EACH DAY 07/24/2020 active pimecrolimus (ELIDEL) 1 % cream Apply small amount to affected areas BID for 2-3 weeks during flares 07/24/2020 active olopatadine (PATANASE) 0.6 % spray,non-aerosol nasal spray Administer 2 sprays into affected nostril(s). 06/01/2020 active QUEtiapine (SEROquel) 200 mg tablet TK 1 T PO QHS 05/17/2019 active topiramate (TOPAMAX) 50 mg tablet Take 1 tablet (50 mg total) by mouth. 03/30/2015 active zolpidem (AMBIEN) 10 mg tablet Take 1 tablet (10 mg total) by mouth. 03/30/2015 active clonazePAM (KlonoPIN) 1 mg tablet active clonazePAM (KlonoPIN) 1 mg tablet Take 1 tablet (1 mg total) by mouth 2 (two) times a day if needed. active doxycycline hyclate (VIBRA-TABS) 100 mg tablet Take 1 tablet (100 mg total) by mouth 2 (two) times a day. active estazolam (PROSOM) 2 mg tablet Take 1 tablet (2 mg total) by mouth. active minoxidiL 5 % solution Apply topically. active QUEtiapine (SEROquel) 100 mg tablet active Allergies Allergen Reaction Severity Comment Documented Date Source Statu s TREE AND SHRUB POLLEN 01/31/2025 [facility] active OTHER Seasonal allergies 12/06/2018 [facility] active Problems Problem Status Onset Date Problem Type Date of Resoluti on Source Red eye active 2020-06-01 ProblemAct [facility] Anxiety active 2015-12-25 ProblemAct [facility] Overweight (BMI 25.0-29.9) active 2018-08-13 ProblemAct [facility] Migraines active 2015-12-25 ProblemAct [facility] Allergic conjunctivitis of both eyes active 2018-05-14 ProblemAct [facility] Insomnia active 2016-03-23 ProblemAct [facility] Prolapse of female pelvic organs active 2025-01-13 ProblemAct [facility] Obstructive sleep apnea active 2018-07-04 ProblemAct [facility] Midline cystocele active 2020-11-20 ProblemAct [facility] Depression active 2015-12-25 ProblemAct [facility] Perennial allergic rhinitis active 2018-05-14 ProblemAct [facility] Atopic dermatitis active 2018-06-08 ProblemAct [facility] GERD (gastroesophageal reflux disease) active 2016-06-08 ProblemAct [facility] Vasomotor symptoms due to menopause active 2020-11-20 ProblemAct [facility] Asthma active 2015-12-25 ProblemAct [facility] Immunizations Vaccine Date Source Lot Number Status Influenza Quadravalent, MDCK , 0.5ml, preservative free (Flucelvax) 6mo and older 02/12/2021 [facility] [id number] completed Influenza Quadravalent, MDCK , 0.5ml, preservative free (Flucelvax) 6mo and older 01/10/2020 [facility] [id number] completed Influenza Quadravalent, MDCK , 0.5ml, with preservative (Flucelvax) 6mo and older 05/02/2018 [facility] [id number] completed Influenza Quadravalent, MDCK , 0.5ml, with preservative (Flucelvax) 6mo and older 03/16/2017 [facility] [id number] completed Influenza trivalent, 0.5mL, preservative free (Fluarix; FluLaval; Fluzone) ages 6mo and older (Afluria) 3 years and older 06/08/2016 [facility] [id number] completed Pneumococcal conjugate 13 va lent (Prevnar 13, PCV13) 2mo and older 12/30/2015 [facility] [id number] complet ed Tdap Tetanus diptheria acell ular pertussis (Boostrix; Adacel) 7yo and older 12/30/2015 [facility] [id number] completed Influenza trivalent, 0.5mL, preservative free (Fluarix; FluLaval; Fluzone) ages 6mo and older (Afluria) 3 years and older 03/30/2015 [facility] completed Encounters Encounter Type Encounter Reason Primary Diagnosis Location Date Ambulatory Retention of urine, unspecified [place] [facility] [place] Care Team Organization Name Specialty Phone Email Start Date End [facility] te [facility] [place]20[place] [facility] [place]
--- OUTSIDE RECORDS SUMMARY | 2025-03-21 14:36 | XMS_ITS | Encounter Summary ---
Author Organization [place] [address] Care Team Providers Care Race And Sports Book Writer Name Role Phone Cruz Phillip MD Primary Care Provider [phone] Reason for Visit * Reason Onset Date Comments provider call back 01/23/2025 Encounter Details Date Type Department Care Team (Late st Contact Info) Description 01/23/2025 Telephone Urogynecology - [place] [address]/ [place] [phone] Nuvia Barros MD [address] [facility] [address] [place] [address] Social History Tobacco Use Types Packs/Day Years [...] on file documented as of this encounter Progress Notes * Eugenia Trinidad NP - 01/23/2025 10:23 AM EDT Returned patient call regarding difficulty voiding. Robotic-assisted laparoscopic supracervical hysterectomy with bilateral salpingectomy with extensive adhesiolysis (CPT 02877). Robotic-assisted laparoscopic mesh sacrocolpoopexy (CPT 33381). Placement of retropubic mesh mid-urethral sling and cystourethroscopy (CPT 79909). Posterior colporrhaphy with perineorrhaphy Pt was offered an appt for eval on 01-16-25. They did not come in due to the drive. Dr. Barros wanted me to offer pt apt in the [place] office for further evaluation tomorrow 01/17/25 Spoke with pt's daughter She states she is not comfortable enough to drive in the car for 40 min Prefers to keep her upcoming apt that she has scheduled in [place] Currently she reports difficulty voiding. Confirmed timeline for voiding difficulty. She was voiding frequently with very low volume since surgery. Yesterday increase dysuria and very low volume voids. She can't get comfortable at night, Her says she is managing post op pain better than when lee spoke on the . Constipation reported to day. She was taking miralax but has some diarrhea after the initial call on the . Discussed appointment which was offered last week, Advised for problems with pain, or retention, wewould like to see the pt in the office. At time time advised close surveillance of voiding function - if going very frequently, these volumes will be low If abdomen becomes distended and pain in pelvic area, this could be retention Advised urine culture Pyridium TID. Provided detailed counseling for prevention of constipation Comfort measures until urine culture available. Advised Dr Barros will be upated. Her scheduled is booked today. If she requests appt, advised to be seen in person. Reviewed all questions, discussed plan of care. ELDA Trinidad APRN * Shirley Kelly - 01/23/2025 9:13 AM EDT Patient has been having difficulty urinating - she is experiencing extreme pain, not urinating muchwhen she is able to urinate, and having difficulty laying down/sitting due to the pain. She has been feeling the urge a lot but not having any output. This began at about 1 AM. She is asking for a call back to [phone] to discuss what her next steps should be documented in this encounter Plan of Treatment Upcoming Encounters Date Type Department Care Team (Late st Contact Info) Description 05/07/2025 11:30 AM EST Office Visit Orthopedics - [place] [address] [place], [place] [phone] Jayson Sharpe PA [address] [place] [phone] 05/20/2025 11:00 AM EST Office Visit Gastroenterology - 299 [facility] 299 [facility] [address] [place] [phone] Dottie Weaver NP 299 [facility] [address] [place] [address] 08/06/2025 11:00 AM EDT Office Visit Bariatric Surgery - [place] 175 [facility] [address] [place] [phone] Roberta Brown, PA [address] [place] [phone] documented as of this encounter Visit Diagnoses Not on filedocumented in this encounter Care Teams Race And Sports Book Writer Relationship Specialty Start Date End Date Cruz Phillip MD [address] [place] [address] PCP - General Internal Medicine 09/24/20 documented as of this encounter
== END 2025-03-21 14:17 | disposition home or self-care (01) ==
LOC: HO.MAMMO 14:16
PROVIDERS: PCP Internal Medicine; Visit Provider Internal Medicine
DX: Z12.31 Encounter for screening mammogram for malignant neoplasm of breast (principal)
CPT/HCPCS: 77063; 77067